=== PATIENT | male | born 1955 | race Caucasian/White ===

== ENCOUNTER 2018-06-05 18:00 | Emergency (ER) | payer OTHER ==
[2018-06-05] MEDS ORDERED: IPRATROPIUM-ALBUTEROL 3 ML NEB INHALATION STA ×2 (18:37)
[2018-06-05] MEDS ORDERED: methylPREDNISolone SOD SUCCI 125 MG/2 ML VIAL IV STA (18:37)
--- NOTE | 2018-06-05 18:42 | ED ---
SOB HPI - General Chief Complaint: Shortness of Breath Stated Complaint: Cough Time Seen by Provider: 06/05/18 18:27 Source: patient, RN notes reviewed Mode of arrival: ambulatory Limitations: no limitations - History of Present Illness Initial Comments: This is a 63-year-old male who presents to the emergency department with chief complaint of cough. Patient states that he developed a cough yesterday. He states that it has been persistent and he sometimes brings up yellow phlegm. He states that he has also felt short of breath. Patient states that he developed a headache today due to the persistent cough. He denies any chest pain. Denies fevers or chills. He states that his throat is feeling "scratchy. " He denies any major medical issues and states that he takes no medications. Denies abdominal pain, nausea or vomiting, diarrhea or constipation. Patient does state that he is a current, every day smoker but has only smoked one cigarette today due to the cough. - Related Data Previous Rx's Medication Instructions Recorded Doxycycline [Vibramycin] 100 mg PO Q12HR #28 capsule 06/05/18 Ipratropium-Albuterol Nebulize 3 ml INHALATION Q4HR PRN #2 box 06/05/18 [Duoneb 0.5 mg-3 mg/3 ml Soln] predniSONE 20 mg PO BID #8 tab 06/05/18 Allergies Allergy/AdvReac Type Severity Reaction Status Date / Time Penicillins Allergy Rash/Hives Verified 06/05/18 18:46 Review of Systems ROS Statement: Those systems with pertinent positive or pertinent negative responses have been documented in the HPI. ROS Other: All systems not noted in ROS Statement are negative. Past Medical History Past Medical History: No Reported History History of Any Multi-Drug Resistant Organisms: None Reported Additional Past Surgical History / Comment(s): lt testicle,vasectomy x 2 Past Psychological History: No Psychological Hx Reported Smoking Status: Current every day smoker Past Alcohol Use History: None Reported Past Drug Use History: None Reported General Exam - General Exam Comments Initial Comments: General: Awake and alert, well-developed; in no apparent distress. Cough is dry and hacking. HEENT: Head atraumatic, normocephalic. Pupils are equal, round and reactive to light. Extraocular movements intact. Oropharynx moist without erythema or exudate. Neck: Supple. Normal ROM. Cardiovascular: Regular rate and rhythm. No murmurs, rubs or gallops. Chest symmetrical. Respiratory: Normal respiratory effort with no use of accessory muscles. Diminished breath sounds throughout with diffuse wheezes noted. No rales or rhonchi. Musculoskeletal: Normal ROM, no tenderness bilateral upper and lower extremities. Ambulating normally. Skin: [place], warm and dry without rashes or lesions. Neurological: Alert and oriented x3. CN II-XII grossly intact. Speech is fluent and answers are appropriate. No focal neuro deficits. Psychiatric: Normal mood and affect. No overt signs of depression or anxiety noted. Limitations: no limitations Course Vital Signs 06/05/18 06/05/18 06/05/18 18:16 19:18 19:30 Temperature 99.4 F Pulse Rate 82 87 90 Respiratory 22 Rate Blood Pressure 129/77 O2 Sat by Pulse 95 Oximetry Medical Decision Making - Medical Decision Making His is a 63-year-old male who presents to the emergency department with chief complaint of cough and shortness of breath. Patient is a current, every day smoker. On physical examination, there are diminished breath sounds throughout all lung bang with diffuse wheezing noted. Patient was given 2 DuoNeb breathing treatments. Vital signs stable patient is oxygenating well at 95% on room air. Lung sounds have improved. Chest x-ray revealed no acute abnormalities. EKG revealed normal sinus rhythm. Several attempts are made to start an IV and draw labs on patient but these were unsuccessful. Patient then refused to be poked again. Patient will be treated for a COPD exacerbation with doxycycline and prednisone. He will be provided with a prescription for a nebulizer and DuoNeb treatments. Patient is in no acute distress and will be discharged home at this time. He is in agreement and voices understanding. All questions were answered. - EKG Data EKG Comments: 19:38:09. Normal sinus rhythm. Ventricular rate 73 bpm, [place] interval 132, QRS duration 78, QT/QTC 372/409 Disposition Clinical Impression: Acute exacerbation of chronic obstructive airways disease Disposition: HOME SELF-CARE Condition: Good Instructions: COPD (Chronic Obstructive Pulmonary Disease) (ED) Additional Instructions: Please take medications as prescribed. Please follow up with primary care provider within 1-2 days. Return to emergency department if symptoms should worsen or any concerns arise. Prescriptions: Doxycycline [Vibramycin] 100 mg PO Q12HR #28 capsule Ipratropium-Albuterol Nebulize [Duoneb 0.5 mg-3 mg/3 ml Soln] 3 ml INHALATION Q4HR PRN #2 box PRN Reason: Wheezing predniSONE 20 mg PO BID #8 tab Is patient prescribed a controlled substance at d/c from ED?: No Referrals: None,Stated [Primary Care Provider] - 1-2 days Time of Disposition: 20:11
--- NOTE | 2018-06-05 19:16 | XR ---
EXAMINATION TYPE: XR chest 2V DATE OF EXAM: 06/05/2018 COMPARISON: NONE HISTORY: Shoulder pain chest pain TECHNIQUE: Frontal and lateral views of the chest are obtained. FINDINGS: Heart and mediastinum are normal. Lungs are clear. Diaphragm is normal. Bony thorax appear s normal. IMPRESSION: Normal chest.
[2018-06-05] MEDS ORDERED: DOXYCYCLINE 50 MG CAP PO STA (20:01)
[2018-06-05 20:23] VITALS: BP 135/63; PULSE 66; RESP 18; TEMP 97.9
== END 2018-06-05 20:26 | disposition home or self-care (01) ==
LOC: EC 18:00
DX: J44.1 Chronic obstructive pulmonary disease with (acute) exacerbation (principal); R51 Headache; F17.210 Nicotine dependence, cigarettes, uncomplicated; Z88.0 Allergy status to penicillin; Z53.29 Procedure and treatment not carried out because of patient's decision for other reasons
CPT/HCPCS: 94640; 93005; 71046; 99285; 96374; J2930

== ENCOUNTER 2018-12-30 21:53 | Emergency (ER) | payer OTHER ==
[2018-12-30 22:01] VITALS: BP 142/82; PULSE 83; RESP 22; TEMP 99.4
[2018-12-30] MEDS ORDERED: ACETAMINOPHEN TAB 500 MG TAB PO STA (22:33)
--- NOTE | 2018-12-30 22:38 | ED ---
General Adult HPI - General Chief complaint: Upper Respiratory Infection Stated complaint: Cough Time Seen by Provider: 12/30/18 22:19 Source: patient, RN notes reviewed Mode of arrival: wheelchair Limitations: no limitations - History of Present Illness Initial comments: Patient is a pleasant 63-year-old male presenting to the emergency department with cough. Onset of symptoms was just this morning. Patient has been coughing multiple times with white sputum. Patient does have associated chills. Patient has had some lightheadedness and feels achy all over. Patient believes he may have the flu. Patient states he has had some posttussive emesis. Patient otherwise is not nauseated. - Related Data Home Medications Medication Instructions Recorded Confirmed D-Methorphan/PE/Acetaminophen 1 pack PO TID PRN 12/30/18 12/30/18 [Theraflu Ms Severe Cold Pckt] guaiFENesin SYRUP 100MG/5ML 200 mg PO Q6HR PRN 12/30/18 12/30/18 [Robitussin] Previous Rx's Medication Instructions Recorded Oseltamivir [Tamiflu] 75 mg PO Q12HR #9 cap 12/31/18 Allergies Allergy/AdvReac Type Severity Reaction Status Date / Time bee pollen Allergy Rash/Hives Verified 12/30/18 22:24 Penicillins AdvReac Nausea & Verified 12/30/18 22:24 Vomiting & Diarrhea Review of Systems ROS Statement: Those systems with pertinent positive or pertinent negative responses have been documented in the HPI. ROS Other: All systems not noted in ROS Statement are negative. Constitutional: Reports: chills Eyes: Denies: eye pain ENT: Denies: ear pain Respiratory: Reports: cough Cardiovascular: Denies: chest pain Endocrine: Reports: fatigue Gastrointestinal: Reports: vomiting (Posttussive). Denies: abdominal pain, nausea Genitourinary: Denies: dysuria Musculoskeletal: Denies: back pain Skin: Denies: rash Neurological: Denies: weakness Past Medical History Past Medical History: No Reported History History of Any Multi-Drug Resistant Organisms: None Reported Additional Past Surgical History / Comment(s): lt testicle,vasectomy x 2 Past Psychological History: No Psychological Hx Reported Smoking Status: Current every day smoker Past Alcohol Use History: None Reported Past Drug Use History: None Reported General Exam Limitations: no limitations General appearance: alert, in no apparent distress Head exam: Present: atraumatic Eye exam: Present: normal appearance, PERRL ENT exam: Present: normal oropharynx Neck exam: Present: normal inspection Respiratory exam: Present: normal lung sounds bilaterally Cardiovascular Exam: Present: regular rate, normal rhythm GI/Abdominal exam: Present: soft. Absent: tenderness Extremities exam: Present: normal inspection. Absent: pedal edema, calf tenderness Back exam: Present: normal inspection Neurological exam: Present: alert Psychiatric exam: Present: normal affect, normal mood Skin exam: Present: normal color Course Vital Signs 12/30/18 21:55 Temperature 99.4 F Pulse Rate 83 Respiratory 22 Rate Blood Pressure 142/82 O2 Sat by Pulse 95 Oximetry Medical Decision Making - Medical Decision Making Patient reevaluated and updated - Lab Data Lab Results 12/30/18 Range/Units 22:57 Influenza Type A RNA Detected H (Not Detectd) Influenza Type B (PCR) Not Detected (Not Detectd) - Radiology Data Radiology results: image reviewed (Chest x-ray shows no acute process) Disposition Clinical Impression: Influenza Disposition: HOME SELF-CARE Condition: Stable Instructions (If sedation given, give patient instructions): Influenza (ED) Additional Instructions: Continue [id number] Tylenol or Motrin as needed. Return for difficulty breathing, worsening or changing symptoms or other concerns. Prescriptions: Oseltamivir [Tamiflu] 75 mg PO Q12HR #9 cap Is patient prescribed a controlled substance at d/c from ED?: No Referrals: Francine Shane MD [STAFF PHYSICIAN] - 1-2 days Time of Disposition: 00:20
--- NOTE | 2018-12-30 22:54 | XR ---
EXAM: XR Chest, 2 Views CLINICAL HISTORY: Chest Pain TECHNIQUE: Frontal and lateral views of the chest. COMPARISON: 06/05/2018 FINDINGS: Lungs: Unremarkable. No consolidation. Pleural space: Unremarkable. No pneumothorax. Heart: Unremarkable. No cardiomegaly. Mediastinum: Unremarkable. Bones/joints: No acute osseous abnormality. IMPRESSION: No acute cardiopulmonary process.
[2018-12-31] MEDS ORDERED: OSELTAMIVIR 75 MG CAP PO STA (00:15)
== END 2018-12-31 00:45 | disposition home or self-care (01) ==
LOC: EC 21:53
DX: J10.1 Influenza due to other identified influenza virus with other respiratory manifestations (principal); F17.200 Nicotine dependence, unspecified, uncomplicated; Z88.0 Allergy status to penicillin; Z91.030 Bee allergy status
CPT/HCPCS: 71046; 87502; 99283

== ENCOUNTER 2019-05-22 17:16 | Emergency (ER) | payer OTHER ==
[2019-05-22 17:29] VITALS: RESP 18
[2019-05-22] MEDS ORDERED: KETOROLAC 30 MG/ML 1 ML VIAL IVP STA (18:18)
[2019-05-22] MEDS ORDERED: SODIUM CHLORIDE 0.9% 1,000 ML IV STA (18:18)
--- NOTE | 2019-05-22 18:22 | ED ---
General Adult HPI - General Chief complaint: Urogenital Stated complaint: Back pain Time Seen by Provider: 05/22/19 18:03 Source: patient Mode of arrival: ambulatory - History of Present Illness Initial comments: 64-year-old male patient presents to the emergency department today for evaluation of right mid back pain. Patient states started approximately 3 weeks ago. Patient states the pain has been constant since its onset however it does worsen when he attempts to lie down. Patient states that it seems to be worsening. States he did have an episode of intense nausea a few days ago but he has never vomited. States he has had some chills, denies any known fever. Patient has had testicular surgery in the past for varicocele but denies any other abdominal or urogenital surgeries. No history of kidney stones. No known injury. Patient denies any recent rash, shortness breath, chest pain, diarrhea, constipation, back pain, numbness, tingling, dizziness, weakness, hematuria, dysuria, urinary urgency, urinary frequency, headache, visual changes, or any other complaints. - Related Data Previous Rx's Medication Instructions Recorded Lidocaine 5% Patch [Lidoderm] 1 patch TOPICAL DAILY #30 patch 05/22/19 Allergies Allergy/AdvReac Type Severity Reaction Status Date / Time bee pollen Allergy Rash/Hives Verified 05/22/19 17:52 bee venom protein (honey bee) Allergy Unknown Verified 05/22/19 17:52 Penicillins AdvReac Nausea & Verified 05/22/19 17:52 Vomiting & Diarrhea Review of Systems ROS Statement: Those systems with pertinent positive or pertinent negative responses have been documented in the HPI. ROS Other: All systems not noted in ROS Statement are negative. Past Medical History Past Medical History: No Reported History Additional Past Medical History / Comment(s): umbilical hernia. History of Any Multi-Drug Resistant Organisms: None Reported Additional Past Surgical History / Comment(s): lt testicle,vasectomy x 2 Past Psychological History: No Psychological Hx Reported Smoking Status: Current every day smoker Past Alcohol Use History: None Reported Past Drug Use History: None Reported General Exam General appearance: alert, in no apparent distress, other (Physical well- developed, well-nourished adult male patient in no acute distress. Vital signs upon presentation are temperature 98.7F, pulse 79, respirations 18, blood pressure 154/88, pulse ox 95% on room air.) Eye exam: Present: normal appearance, PERRL, EOMI. Absent: scleral icterus, conjunctival injection, periorbital swelling ENT exam: Present: normal exam, normal oropharynx, mucous membranes moist Respiratory exam: Present: normal lung sounds bilaterally. Absent: respiratory distress, wheezes, rales, rhonchi, stridor Cardiovascular Exam: Present: regular rate, normal rhythm, normal heart sounds. Absent: systolic murmur, diastolic murmur, rubs, gallop, clicks GI/Abdominal exam: Present: soft, normal bowel sounds. Absent: distended, tenderness, guarding, rebound, rigid Back exam: Present: normal inspection, tenderness (Tenderness over the right posterior ribs in the thoracic paraspinal region. ), other (No erythema, no rash. ) Neurological exam: Present: alert, oriented X3, CN II-XII intact Psychiatric exam: Present: normal affect, normal mood Skin exam: Present: warm, dry, intact, normal color. Absent: rash Course Vital Signs 05/22/19 05/22/19 17:26 19:40 Temperature 98.7 F 97.9 F Pulse Rate 79 58 L Respiratory 18 18 Rate Blood Pressure 154/88 150/98 O2 Sat by Pulse 95 97 Oximetry Medical Decision Making - Medical Decision Making 64-year-old male patient presents to the emergency department today for evaluation of right middle back pain. Symptoms have been going on for the last 3 weeks. Physical examination did reveal tenderness over the seventh and eighth ribs. The thoracic paraspinal region. There is no skin changes. No swelling. No spinal tenderness. Patient is afebrile, vital signs normal. Labs reviewed and were unremarkable. Chest x-ray was obtained and showed no acute abnormalities. KUB x-ray was obtained and showed no acute abnormalities. Urinalysis shows no evidence for hematuria. I did discuss findings and results with the patient. Since the pain is reproducible it is felt that this is or musculoskeletal in nature. We will provide Lidoderm patch and give prescription for this at home. He is instructed to take ibuprofen as needed for pain co ntrol. He is instructed to apply ice and heat to the area patient is instructed to follow-up with the primary care physician for recheck in 1-2 days. Return parameters were discussed in detail. He verbalizes understanding and agrees with this plan. - Lab Data Result diagrams: 05/22/19 18:37 05/22/19 18:37 Lab Results 05/22/19 05/22/19 05/22/19 Range/Units 18:37 18:37 18:37 WBC 9.2 (3.8-10.6) k/uL RBC 5.96 H (4.30-5.90) m/uL Hgb 17.4 (13.0-17.5) gm/dL Hct 53.6 H (39.0-53.0) % MCV 90.0 (80.0-100.0) fL MCH 29.2 (25.0-35.0) pg MCHC 32.4 (31.0-37.0) g/dL RDW 13.9 (11.5-15.5) % Plt Count 290 (150-450) k/uL Neutrophils % 62 % Lymphocytes % 25 % Monocytes % 8 % Eosinophils % 3 % Basophils % 1 % Neutrophils # 5.7 (1.3-7.7) k/uL Lymphocytes # 2.3 (1.0-4.8) k/uL Monocytes # 0.7 (0-1.0) k/uL Eosinophils # 0.3 (0-0.7) k/uL Basophils # 0.1 (0-0.2) k/uL Sodium 139 (137-145) mmol/L Potassium 4.3 (3.5-5.1) mmol/L Chloride 110 H (98-107) mmol/L Carbon Dioxide 22 (22-30) mmol/L Anion Gap 7 mmol/L BUN 11 (9-20) mg/dL Creatinine 0.98 (0.66-1.25) mg/dL Est GFR (CKD-EPI)AfAm >90 (>60 ml/min/1.73 sqM) Est GFR (CKD-EPI)NonAf 83 (>60 ml/min/1.73 sqM) Glucose 84 (74-99) mg/dL Calcium 8.9 (8.4-10.2) mg/dL Total Bilirubin 0.3 (0.2-1.3) mg/dL AST 23 (17-59) U/L ALT 18 L (21-72) U/L Alkaline Phosphatase 53 (38-126) U/L Total Protein 6.5 (6.3-8.2) g/dL Albumin 3.8 (3.5-5.0) g/dL Amylase 38 (30-110) U/L Lipase 327 H (23-300) U/L Urine Color Yellow Urine Appearance Clear (Clear) Urine pH 6.5 (5.0-8.0) Ur Specific [place] 1.019 (1.001-1.035) Urine Protein Negative (Negative) Urine Glucose (UA) Negative (Negative) Urine Ketones Negative (Negative) Urine Blood Negative (Negative) Urine Nitrite Negative (Negative) Urine Bilirubin Negative (Negative) Urine Urobilinogen <2.0 (<2.0) mg/dL Ur Leukocyte Esterase Negative (Negative) - Radiology Data Radiology results: report reviewed, image reviewed KUB x-ray was obtained. Report was reviewed in its entirety. Impression by Dr. thompson shows nonspecific abdomen. Left basilar atelectasis or infiltrate. Two-view x-ray of the chest is obtained. Report was reviewed in its entirety. Impression by Dr. thompson shows basilar atelectasis favored over pneumonia. Disposition Clinical Impression: Thoracic back pain Disposition: HOME SELF-CARE Condition: Good Instructions (If sedation given, give patient instructions): Back Pain (ED) Additional Instructions: Use medication as directed. Continue ibuprofen as needed. Apply ice or heat to the area. Follow-up with the primary care physician for recheck in 1-2 days. Return to the emergency department for any new, worsening, or concerning symptoms. Prescriptions: Lidocaine 5% Patch [Lidoderm] 1 patch TOPICAL DAILY #30 patch Is patient prescribed a controlled substance at d/c from ED?: No Referrals: Francine Shane MD [STAFF PHYSICIAN] - 1-2 days Time of Disposition: 20:02
[2019-05-22 18:50] LABS: Basophils # (A) 0.1 k/uL (0-0.2); Basophils % (A) 1 %; Eosinophils # (A) 0.3 k/uL (0-0.7); Eosinophils % (A) 3 %; HCT 53.6 % (39.0-53.0); HGB 17.4 gm/dL (13.0-17.5); Lymphocytes # (A) 2.3 k/uL (1.0-4.8); Lymphocytes % (A) 25 %; MCH 29.2 pg (25.0-35.0); MCHC 32.4 g/dL (31.0-37.0); Mean Platelet Volume 6.9; Monocytes # (A) 0.7 k/uL (0-1.0); Monocytes % (A) 8 %; Neutrophils # (A) 5.7 k/uL (1.3-7.7); Neutrophils % (A) 62 %; Platelet Count 290 k/uL (150-450); RBC 5.96 m/uL (4.30-5.90); RDW 13.9 % (11.5-15.5); WBC 9.2 k/uL (3.8-10.6)
[2019-05-22 18:55] LABS: Appearance,Urine Clear (Clear); Bilirubin,Urine Negative (Negative); Blood,Urine Negative (Negative); Color,Urine Yellow; Glucose,Urine (UA) Negative (Negative); Ketones,Urine Negative (Negative); Leukocyte Esterase,Urine Negative (Negative); Nitrite,Urine Negative (Negative); PH, Urine 6.5 (5.0-8.0); Protein,Urine Negative (Negative); Specific Gravity,Urine 1.019 (1.001-1.035); Urobilinogen,Urine <2.0 mg/dL (<2.0)
--- NOTE | 2019-05-22 19:02 | XR ---
EXAMINATION TYPE: XR KUB DATE OF EXAM: 05/22/2019 COMPARISON: NONE HISTORY: Pain TECHNIQUE: One view abdominal series FINDINGS: The osseous structures are intact. The bowel gas pattern is nonspecific. Hypertrophic change of the spine. Bowel gas pattern nonspecific. Retained fecal debris noted. Subsegmental changes left lung bas e. IMPRESSION: 1. Nonspecific abdomen. 2. Left basilar atelectasis or infiltrate.
[2019-05-22 19:08] LABS: ALT 18 U/L (21-72); AST 23 U/L (17-59); African American GFR (CKD) >90 (>60 ml/min/1.73 sqM); Albumin 3.8 g/dL (3.5-5.0); Alkaline Phosphatase 53 U/L (38-126); Amylase 38 U/L (30-110); Anion Gap 7 mmol/L; Blood Urea Nitrogen 11 mg/dL (9-20); Calcium 8.9 mg/dL (8.4-10.2); Carbon Dioxide 22 mmol/L (22-30); Chloride 110 mmol/L (98-107); Glucose 84 mg/dL (74-99); Potassium 4.3 mmol/L (3.5-5.1); Sodium 139 mmol/L (137-145); Total Bilirubin 0.3 mg/dL (0.2-1.3); Total Protein 6.5 g/dL (6.3-8.2)
--- NOTE | 2019-05-22 19:38 | XR ---
EXAMINATION TYPE: XR chest 2V DATE OF EXAM: 05/22/2019 COMPARISON: 12/30/2018 TECHNIQUE: PA and lateral views submitted. HISTORY: Pain FINDINGS: Subsegmental changes are seen at the lung bases. Heart is normal. No pneumothorax or interstitial dagmar ma. Pleural thickening noted. Hypertrophic change of the spine. IMPRESSION: 1. Basilar atelectasis favored over pneumonia.
[2019-05-22] MEDS ORDERED: LIDOCAINE 5% PATCH TOPICAL STA (20:00)
[2019-05-22 21:09] VITALS: BP 155/99; PULSE 61; TEMP 98
== END 2019-05-22 21:14 | disposition home or self-care (01) ==
LOC: EC 17:16
DX: M54.6 Pain in thoracic spine (principal); J30.1 Allergic rhinitis due to pollen; F17.200 Nicotine dependence, unspecified, uncomplicated; Z91.030 Bee allergy status; Z88.0 Allergy status to penicillin; Z98.52 Vasectomy status
CPT/HCPCS: 36415; 71046; 74018; 80053; 81003; 82150; 83690; 85025; 96361; 96374; 99284

== ENCOUNTER → 2020-06-23 | Outpatient (CLI) | payer OTHER ==
--- NOTE | 2020-06-23 11:10 | XR ---
EXAMINATION TYPE: XR shoulder complete RT, XR humerus RT DATE OF EXAM: 06/23/2020 CLINICAL HISTORY: Sprain of right shoulder. Injury after heavy lifting. TECHNIQUE: Three views of the right shoulder are obtained. 2 views of the right humerus are obtained . COMPARISON: 08/10/2016 right shoulder radiograph FINDINGS: There is no acute fracture/dislocation evident in the right humerus or shoulder. The acro mioclavicular and glenohumeral joint spaces appear within normal limits. There is cortical irregular ity of the greater tuberosity. The visualized ribs are intact and unremarkable. IMPRESSION: 1. No acute fracture or dislocation in the right humerus or shoulder. 2. Cortical irregularity of the humeral head greater tuberosity may represent sequela of chronic rota tor cuff pathology.
== END | disposition home or self-care (01) ==
LOC: RADXRMAIN 10:42
PROVIDERS: ATTEND Emergency Medicine
DX: S43.401A Unspecified sprain of right shoulder joint, initial encounter (principal)

== ENCOUNTER → 2020-07-07 | Outpatient (CLI) | payer OTHER ==
--- NOTE | 2020-07-07 22:47 | MR ---
EXAMINATION TYPE: MR shoulder RT wo con DATE OF EXAM: 07/07/2020 COMPARISON: Right shoulder x-ray June 23, 2020 HISTORY: Rt shoulder pain with difficulty raising arm overhead/ pulling injury 3 weeks ago TECHNIQUE: Multiplanar, multisequence imaging of the bright shoulder is performed without contrast. FINDINGS: Rotator Cuff: Large cleft measuring 15 mm transversely by 13 mm AP diameter consistent with retracte d tear involving anterior two thirds of the distal supraspinatus spinatus tendon tendon. Infraspinatu s tendon intact. Subscapularis tendon intact with surrounding fluid noted. Acromioclavicular Joint: Mild to moderate narrowing with mild capsular hypertrophy. No significant sp urring. Distal acromion morphology unremarkable. Glenohumeral Joint: Large glenohumeral joint effusion extending anteriorly and medially. Moderate kristie rowing with small inferior humeral head spurring Labrum: The superior labrum shows increased signal and irregularity consistent with tear. Biceps Tendon: The long head of biceps is dislocated medially out of the bicipital groove where it is trapped and flattened under the overlying supraspinatus tendon. Intracapsular portion are not well i dentified. Cannot exclude tear at this level. Bone marrow signal: No focal abnormal marrow signal is appreciated. Other: No additional significant abnormality is appreciated. IMPRESSION: 1. Significant full-thickness tear anterior two thirds of the distal supraspinatus tendon. 2. Medial dislocation of long head of biceps tendon. Normal attachment at the labral anchor cannot be identified. Tearing of the intracapsular portion cannot be excluded. 3. Large glenohumeral joint effusion. Superior labral tear.
== END | disposition home or self-care (01) ==
LOC: RADMRIMAIN 20:42
PROVIDERS: ATTEND Emergency Medicine
DX: M75.121 Complete rotator cuff tear or rupture of right shoulder, not specified as traumatic (principal); M25.411 Effusion, right shoulder

== ENCOUNTER → 2020-08-12 | Outpatient (CLI) | payer OTHER ==
[2020-08-12 12:33] LABS: Basophils # (A) 0.1 k/uL (0-0.2); Basophils % (A) 1 %; Eosinophils # (A) 0.3 k/uL (0-0.7); Eosinophils % (A) 3 %; HCT 54.1 % (39.0-53.0); HGB 17.2 gm/dL (13.0-17.5); Lymphocytes # (A) 1.8 k/uL (1.0-4.8); Lymphocytes % (A) 22 %; MCH 29.9 pg (25.0-35.0); MCHC 31.9 g/dL (31.0-37.0); MCV 93.8 fL (80.0-100.0); Mean Platelet Volume 7.8; Monocytes # (A) 0.6 k/uL (0-1.0); Monocytes % (A) 7 %; Neutrophils # (A) 5.4 k/uL (1.3-7.7); Neutrophils % (A) 66 %; Platelet Count 284 k/uL (150-450); RBC 5.76 m/uL (4.30-5.90); RDW 13.6 % (11.5-15.5); WBC 8.2 k/uL (3.8-10.6)
[2020-08-12 12:50] LABS: Potassium 4.7 mmol/L (3.5-5.1)
== END | disposition home or self-care (01) ==
LOC: LABPAT 10:32
PROVIDERS: ATTEND Orthopaedic Surgery
DX: Z01.818 Encounter for other preprocedural examination (principal); M75.41 Impingement syndrome of right shoulder
CPT/HCPCS: 36415; 80051; 85025; 93005

== ENCOUNTER 2020-08-14 11:42 | Day surgery (SDC) | payer OTHER ==
--- NOTE | 2020-08-13 16:27 | HP ---
HISTORY AND PHYSICAL DATE OF SURGERY: 08/14/2020 Bebeto Miramontes is a 65-year-old gentleman seen with progressive right shoulder pain. We discussed options. He elected to proceed with arthroscopy. Consent was obtained. PAST MEDICAL HISTORY: Noncontributory. PAST SURGICAL HISTORY: Knee arthroscopy. DAILY MEDICATIONS: None. ALLERGIES: PENICILLIN. SOCIAL HISTORY: He smokes one pack of cigarettes daily. PHYSICAL EVALUATION OF THE RIGHT SHOULDER: Flexion is 40 degrees. Abduction is 40 degrees. External rotation is 10 degrees. Pain and weakness. Tenderness along the anterolateral acromion and rotator cuff insertion. Impingement sign is positive at 90. Drop-arm sign positive. Distal neurovascular exam intact. RADIOGRAPHS: Radiographs of the right shoulder revealed acromioclavicular joint osteoarthritis. Right shoulder MRI revealed a large rotator cuff tendon tear, a labral tear and biceps dislocation. IMPRESSION: 1. Right shoulder impingement with rotator cuff tear. 2. Right shoulder acromioclavicular joint osteoarthritis. 3. Right shoulder labral tear. 4. Right shoulder long head biceps tendon dislocation. 5. Tobacco use. PLAN: Right shoulder arthroscopy, subacromial decompression, arthroscopic rotator cuff repair, Jaymie procedure, biceps tenotomy and debridement. MMODL / IJN: [id number] /
[~2020-08-14 11:42] MED LIST: DEXAMETHASONE SOD PHOSPHATE 10 MG/ML 1 ML VIAL IV ONE; HYDROmorphone 0.5 MG/0.5 ML SYRINGE IVP PRN; LACTATED RINGERS 1,000 ML IV SCH; MIDAZOLAM 2 MG/2 ML VIAL IV PRN; ONDANSETRON 4 MG/2 ML VIAL IVP ONE
[2020-08-14] MEDS ORDERED: MIDAZOLAM 2 MG/2 ML VIAL IVP ONE (14:26)
--- NOTE | 2020-08-14 14:47 | P.ANPRN ---
Procedure Note - Anesthesia - Nerve Block Performed Right Interscalene Single Time Out Performed: Yes (1425) Date of Procedure: 08/14/20 Procedure Start Time: 14:26 Procedure Stop Time: 14:36 Location of Patient: PreOp Indication: Acute Post-Operative Pain, Analgesia, Requested by Surgeon Specifically requested for management of pain by : Jose Holloway Sedation Type: Sedate with meaningful contact maintained Preparation: Sterile Prep Position: Supine Catheter: None Needle Types: Pajunk Needle Gauge: 20 Ultrasound used to visualize needle placement: Yes Ultrasound used to observe medication spread: Yes Injectate: 0.5% Ropivacaine (see comment for volume) (20 mL with 10 mg decadron) Blood Aspirated: Yes Pain Paresthesia on Injection Noted: Yes Resistance on Injection: Normal Image Stored and Saved: Yes Events: Uneventful and Well Tolerated
[2020-08-14] MEDS ORDERED: ePHEDrine SULFATE/0.9% NACL/PF 50 MG/5 ML SYRINGE IV ONE (14:58)
[2020-08-14] MEDS ORDERED: SUCCINYLCHOLINE CHLORIDE 100 MG/5 ML SYR IV ONE (14:58)
[2020-08-14] MEDS ORDERED: PROPOFOL 10 MG/ML 20 ML VIAL IV ONE (14:58)
[2020-08-14] MEDS ORDERED: DEXAMETHASONE SOD PHOSPHATE 4 MG/ML 1 ML VIAL ONE (14:58)
[2020-08-14] MEDS ORDERED: ROPIVACAINE 5 MG/ML 30 ML VIAL ONE (14:58)
[2020-08-14] MEDS ORDERED: LIDOCAINE 1% INJ 10MG/ML (20 ML MDV) ONE (14:58)
[2020-08-14] MEDS ORDERED: MIDAZOLAM 2 MG/2 ML VIAL ONE (14:58)
[2020-08-14] MEDS ORDERED: fentaNYL (PF) 50 MCG/ML 2 ML AMP ONE (14:58)
[2020-08-14 16:55] VITALS: RESP 16; TEMP 96.7
--- NOTE | 2020-08-14 17:01 | P.OP ---
Date of Procedure: 08/14/20 Preoperative Diagnosis: Right shoulder impingement Postoperative Diagnosis: 1. Right shoulder rotator cuff tear 2. Right shoulder impingement 3. Right shoulder acromioclavicular joint osteoarthritis Procedure(s) Performed: 1. Right shoulder arthroscopic rotator cuff repair 2. Right shoulder arthroscopic subacromial decompression 3. Right shoulder arthroscopic Jaymie procedure Implants: 44.75 Arthrex swivel lock anchors Anesthesia: GETA, regional (Interscalene block) Surgeon: Jose Holloway [employer]1: Tonny Cali Estimated Blood Loss (ml): 11 Pathology: none sent Condition: stable Disposition: PACU Indications for Procedure: 65-year-old gentleman seen with progressive right shoulder pain. After treatment options were discussed, he elected to proceed with arthroscopy. Operative Findings: See description of procedure Description of Procedure: Patient underwent an interscalene block by department of anesthesia. The patient was then taken to the operative suite. The patient underwent a general anesthetic by the department of anesthesia. The patient was placed into a lateral position and secured. There was appropriate padding of the bony prominence. Right shoulder was then prepped and draped in normal sterile orthopedic fashion. We placed the extremity in 10 pounds of longitudinal traction. A posterior incision was now made for a posterior working portal site. The trocar and cannula were inserted into the glenohumeral joint. Arthroscopy was initiated. Spinal needle was now inserted anteriorly, to ascertain the anterior working portal site. An incision was now made in that area, a trocar was inserted followed by a probe. The long head biceps tendon was absent with only a stump remaining. The labrum was probed and found to be stable. There were grade 1 chondral malacia changes of the glenohumeral joint. There was a large rotator cuff tear I could visualize from the glenohumeral joint. I debrided the remainder of that biceps stump. At this point instruments removed from the glenohumeral joint. Utilizing the posterior working portal site, the trocar and cannula were inserted into the subacromial space. Arthroscopy initiated. I made an incision 2 fingerbreadths lateral to the acromion. I introduced my trocar followed by my ArthroCare ablator. I now began ablating thick subacromial bursal tissue, which exposed the undersurface of the anterior acromion. There was diminished subacromial space. There was a very prominent anterior acromion. A motorized bur was introduced and a subacromial decompression was performed. I also excised some osteophytes off the inferior aspect of the distal clavicle. The AC joint was visualized and noted to be fairly arthritic. The motorized bur was introduced in the anterior portal site and a Jaymie procedure was performed without difficulty, decompressing the AC joint nicely. I turned my attention to the rotator cuff. There was a 3 cm rotator cuff tear. I debrided the margins getting down to stable tendon tissue. I introduced my motorized bur and abraded the footprint area, getting some petechial bleeding. I now made an accessory portal site off the lateral aspect of the acromion. I punched to holes medial for medial row fixation with the assistance of Luis Daniel BLANCO carefully tapping the punch with a mallet as I held the punch and the camera. I now introduced both anchors into the pre-punched holes and Luis Daniel BLANCO tapped them with the mallet as I held anchors and the camera. Luis Daniel BLANCO now screwed the anchors in place a while I held the anchor guide and camera. All 8 limbs of suture were now passed through good bites of rotator cuff tendon. I now punched 2 holes for lateral row fixation again I held the punch and camera while Luis Daniel BLANCO used a mallet to tap in the punch. We now passed sutures through both anchors and individually I introduced the anchors into the pre-punch holes I held the anchor guide in position with one hand holding the camera with the other hand while Luis Daniel BLANCO tensioned the sutures and screwed in the anchors one at a time. All residual suture limbs were now clipped. We had good compression of the tendon along the entire footprint. I injected 1 mL Renyte intra-articular Instruments now removed from the portal sites. All portal sites were approximated with nylon suture. Sterile dressings were applied followed by a shoulder immobilizer. Tonny BLANCO assisted in this complex case. The patient was awakened, transferred to a bed, and taken to recovery in stable condition.
[2020-08-14 17:47] VITALS: BP 126/77; PULSE 71
== END 2020-08-14 18:15 | disposition home or self-care (01) ==
LOC: OR 11:42
PROVIDERS: ATTEND Orthopaedic Surgery
DX: M75.101 Unspecified rotator cuff tear or rupture of right shoulder, not specified as traumatic (principal); M25.811 Other specified joint disorders, right shoulder; M19.011 Primary osteoarthritis, right shoulder; M25.711 Osteophyte, right shoulder; Z88.0 Allergy status to penicillin; F17.210 Nicotine dependence, cigarettes, uncomplicated; Z91.030 Bee allergy status; Z79.1 Long term (current) use of non-steroidal anti-inflammatories (NSAID); Z98.52 Vasectomy status; Z98.890 Other specified postprocedural states
CPT/HCPCS: 64415; 76942; 29826; 29827; 29824; C1713; Q4212; J2250; J1100 ×2; J0690; J2405; J2001; J3010; J2795; J0330; J2704

== ENCOUNTER 2021-06-23 10:03 | Emergency (ER) | payer OTHER ==
[2021-06-23 10:09] VITALS: BP 157/81; PULSE 68; RESP 18; TEMP 97.9
[2021-06-23] MEDS ORDERED: LIDOCAINE 1% INJ 10MG/ML (20 ML MDV) SQ ONE (10:50)
--- NOTE | 2021-06-23 11:33 | ED ---
General Adult HPI - General Chief complaint: Wound/Laceration Stated complaint: wrist lac Time Seen by Provider: 06/23/21 10:17 Source: patient, RN notes reviewed Mode of arrival: ambulatory Limitations: no limitations - History of Present Illness Initial comments: 66-year-old male resents to the emergency room for treatment of laceration to the left wrist. Patient states that he was pain A towel on a towel rack and it broke and cut him. He states tetanus is up-to-date. Denies any difficulty moving the hand or wrist.Patient has no other complaints at this time including shortness of breath, chest pain, abdominal pain, nausea or vomiting, headache, or visual changes. - Related Data Home Medications Medication Instructions Recorded Confirmed Ibuprofen [Motrin] 400 mg PO Q6H PRN 08/11/20 08/14/20 Previous Rx's Medication Instructions Recorded HYDROcodone/APAP 7.5-325MG [[place] 1 each PO Q6HR PRN #28 tab 08/14/20 7.5] Allergies Allergy/AdvReac Type Severity Reaction Status Date / Time bee pollen Allergy Rash/Hives Verified 06/23/21 10:08 bee venom protein (honey bee) Allergy Unknown Verified 06/23/21 10:08 latex Allergy Rash/Hives Verified 06/23/21 10:08 Penicillins AdvReac Nausea & Verified 06/23/21 10:08 Vomiting & Diarrhea Review of Systems ROS Statement: Those systems with pertinent positive or pertinent negative responses have been documented in the HPI. ROS Other: All systems not noted in ROS Statement are negative. Past Medical History Past Medical History: Hyperlipidemia, Hypertension, Osteoarthritis (OA), Thyroid Disorder Additional Past Medical History / Comment(s): RIGHT SHOULDER INJURY AT WORK History of Any Multi-Drug Resistant Organisms: None Reported Additional Past Surgical History / Comment(s): lt testicle,vasectomy x 2. ARTHROSCOPY OF KNEE (PATIENT NOT SURE WHICH) Past Anesthesia/Blood Transfusion Reactions: Motion Sickness Past Psychological History: No Psychological Hx Reported Smoking Status: Current every day smoker Past Alcohol Use History: None Reported Past Drug Use History: None Reported - Past Family History Mother Family Medical History: No Reported History General Exam Limitations: no limitations General appearance: alert, in no apparent distress Head exam: Present: atraumatic Eye exam: Present: normal appearance, PERRL, EOMI. Absent: scleral icterus, conjunctival injection ENT exam: Present: normal exam, mucous membranes moist Neck exam: Present: normal inspection, full ROM. Absent: tenderness Respiratory exam: Present: normal lung sounds bilaterally. Absent: respiratory distress, wheezes Cardiovascular Exam: Present: regular rate, normal rhythm, normal heart sounds Extremities exam: Present: full ROM (of the L wrist), normal capillary refill (cap refill < 2 sec, radial pulse 2+), other (sensation intact in the LUE) Course Vital Signs 06/23/21 10:04 Temperature 97.9 F Pulse Rate 68 Respiratory 18 Rate Blood Pressure 157/81 O2 Sat by Pulse 98 Oximetry Procedures - Laceration Laceration #1 Consent Obtained: verbal consent Indication: laceration Site: upper extremity Size (cm): 3 Description: linear Depth: simple, single layer Anesthetic Used: lidocaine 1% Anesthesia Technique: local infiltration Amount (mls): 3 Pre-repair: wound explored, irrigated extensively, deep structures intact Type of Sutures: nylon Size of Sutures: 4-0 Number of Sutures: 4 Technique: simple, interrupted Patient Tolerated Procedure: well, no complications Medical Decision Making - Medical Decision Making Laceration was cleaned and repaired. Patient has full range motion of all digits. No active bleeding. Patient did not want to have an x-ray done to rule out foreign body, states there is no way there is anything in there. At this time patient will be discharged home with return parameters. Did discuss returning in 7-10 days for suture removal. We will otherwise follow up with primary care. Disposition Clinical Impression: Laceration Disposition: HOME SELF-CARE Condition: Good Instructions (If sedation given, give patient instructions): Care For Your Stitches (ED), Laceration (ED) Additional Instructions: Keep the area clean with gentle soap and water. Monitor for signs of infection such as spreading or streaking redness, drainage, or fever and return if these occur. Please follow up with your doctor in 1-2 days. Return for any other worsening symptoms. Is patient prescribed a controlled substance at d/c from ED?: No Referrals: Ismael Dumont MD [Primary Care Provider] - 1-2 days Time of Disposition: 11:31
== END 2021-06-23 11:40 | disposition home or self-care (01) ==
LOC: EC 10:03
DX: S61.512A Laceration without foreign body of left wrist, initial encounter (principal); E78.5 Hyperlipidemia, unspecified; I10 Essential (primary) hypertension; M19.90 Unspecified osteoarthritis, unspecified site; F17.200 Nicotine dependence, unspecified, uncomplicated; Z91.040 Latex allergy status; Z88.0 Allergy status to penicillin; W26.8XXA Contact with other sharp object(s), not elsewhere classified, initial encounter
CPT/HCPCS: 99282; 12002; J2001